=== PATIENT | female | born 1940 | race African-American/Black ===

== ENCOUNTER 2020-06-16 16:56 | Observation (INO) ==
[2020-06-16 17:43] LABS: VBG HCO3 23 mEq/L (21-27); VBG PCO2 42 mmHg (41-51); VBG PH 7.36 pH Units (7.32-7.42); VBG PO2 92 mmHg (25-50)
[2020-06-16 18:34] LABS: Calcium 10.1 mg/dL (8.6-10.3); Potassium 4.7 mEq/L (3.5-5.1); Troponin I 0.03 ng/mL (< 0.04)
[2020-06-16] MEDS ORDERED: 0.9 % Sodium Chloride 1,000 ML IVC ONE (18:34)
[2020-06-16] MEDS ORDERED: *HR* Dextrose 50 % in Water (Vial) 50 ML VIAL IVP PRN ×3 (18:37→23:41)
[2020-06-16] MEDS ORDERED: Insulin Human Regular 100 UNIT in 0.9 % Sodium Chloride 100 ML IVC SCH ×2 (18:45→22:30)
[2020-06-16] MEDS ORDERED: 0.9 % Sodium Chloride 1,000 ML IVC STA (18:46)
[2020-06-16 19:22] LABS: Bilirubin,Urine Negative (Negative); Blood,Urine Negative (Negative); Clarity,Urine Clear (Clear); Color,Urine Colorless (Yellow); Glucose,Urine (UA) >=1000 mg/dL (Normal); Ketones,Urine 40 mg/dL (Negative); Leukocyte Esterase,Urine Small (Negative); Nitrite,Urine Negative (Negative); Protein,Urine Negative (Neg-Trace); Specific Gravity,Urine > 1.030 (1.010-1.025); Squamous Epithelial Cell,Urine Few per hpf (None-Few); Urobilinogen,Urine Normal (Normal)
[2020-06-16] MEDS ORDERED: Naloxone 0.4 MG/ML INJ IVP PRN (20:32)
[2020-06-16] MEDS ORDERED: 0.45 % Sodium Chloride w/KCl 20 MEQ/1,000 ML MLS IVC SCH ×2 (20:45→22:37)
[2020-06-16 21:48] LABS: Basophils % 0.3 %; Eosinophils % 0.5 %; Hematocrit 39.4 % (35.3-44.9); Immature Granulocytes % 0.2 % (0-4); Lymphocytes # 1.5 K/mcL (0.6-4.6); Lymphocytes % 22.2 %; Mean Platelet Volume 11.2 fL (9.4-12.4); Monocytes # 0.4 K/mcL (0.0-1.3); Monocytes % 5.9 %; Neutrophils # 4.7 K/mcL (1.6-8.9); Platelet Count 185 K/mcL (140-400); Red Blood Count 4.19 M/mcL (3.82-4.97); Red Cell Distribution Width 13.2 % (11.5-14.5); Segmented Neutrophils % 70.9 %; White Blood Count 6.6 K/mcL (4.3-11.1)
[2020-06-16 21:51] LABS: VBG HCO3 25 mEq/L (21-27); VBG PCO2 43 mmHg (41-51); VBG PH 7.37 pH Units (7.32-7.42); VBG PO2 46 mmHg (25-50)
[2020-06-16 21:52] LABS: Prothrombin Time 11.3 Seconds (9.4-12.1)
[2020-06-16 22:04] LABS: Creatinine,Urine 25 mg/dL; Microalbumin,Urine < 7 mg/L; Potassium,Urine 17.7 mEq/L; Protein/Creatinine Ratio,Urine 0.36 mg/mg (0.00-0.20); Sodium, Urine 28.6 mEq/L
[2020-06-16 22:08] LABS: Alanine Aminotransferase 23 Units/L (7-52); Albumin 3.7 g/dL (3.5-5.7); Albumin/Globulin Ratio 1.5 (1.1-2.2); Alkaline Phosphatase 56 Units/L (34-104); Aspartate Amino Transferase 23 Units/L (13-39); BUN/Creatinine Ratio 20 (6-26); Bilirubin,Direct 0.1 mg/dL (0.0-0.2); Bilirubin,Indirect 0.4 mg/dL (0.0-1.0); Bilirubin,Total 0.5 mg/dL (0.3-1.0); Blood Urea Nitrogen 21 mg/dL (8-23); Calcium 9.1 mg/dL (8.6-10.3); Carbon Dioxide 20 mEq/L (23-29); Chloride 109 mEq/L (98-107); Globulin 2.5 g/dL (2.4-3.5); Glucose 383 mg/dL (70-105); Magnesium 2.1 mg/dL (1.6-2.6); Osmolality,Calculated 311 (280-300); Phosphorous 1.5 mg/dL (2.7-4.5); Potassium 3.6 mEq/L (3.5-5.1); Sodium 141 mEq/L (136-145); Total Protein 6.2 g/dL (6.4-8.9); eGFR For African Americans > 60 (> 60); eGFR For Non-African Americans 52 (> 60)
[2020-06-16] MEDS: *HR* Heparin 5,000 UNIT/ML VIAL SQ SCH (23:22)
[2020-06-16] MEDS ORDERED: Dextrose Gel 15 GM/37.5 ML TUBE PO PRN ×2 (23:41)
[2020-06-16] MEDS ORDERED: D5% in Water 1,000 ML IVC PRN (23:41)
[2020-06-16] MEDS ORDERED: Insulin DETEMIR 100 UNIT/ML X5UNITS SQ ONE (23:50)
[2020-06-17 00:36] LABS: VBG HCO3 22 mEq/L (21-27); VBG PCO2 39 mmHg (41-51); VBG PH 7.36 pH Units (7.32-7.42); VBG PO2 44 mmHg (25-50)
[2020-06-17 00:52] LABS: BUN/Creatinine Ratio 23 (6-26); Blood Urea Nitrogen 21 mg/dL (8-23); Calcium 9.5 mg/dL (8.6-10.3); Carbon Dioxide 22 mEq/L (23-29); Chloride 110 mEq/L (98-107); Glucose 189 mg/dL (70-105); Magnesium 2.1 mg/dL (1.6-2.6); Osmolality,Calculated 304 (280-300); Phosphorous 1.8 mg/dL (2.7-4.5); Potassium 3.2 mEq/L (3.5-5.1); Sodium 143 mEq/L (136-145); eGFR For African Americans > 60 (> 60); eGFR For Non-African Americans 58 (> 60)
[2020-06-17] MEDS: *HR* Heparin 5,000 UNIT/ML VIAL SQ SCH ×3 (05:07→20:00)
[2020-06-17 06:11] LABS: Calcium 8.6 mg/dL (8.6-10.3); Magnesium 2.1 mg/dL (1.6-2.6); Phosphorous 2.8 mg/dL (2.7-4.5); Potassium 3.4 mEq/L (3.5-5.1)
[2020-06-17] MEDS ORDERED: Potassium Chloride Elixir 20 MEQ/15 ML UDC PO ONE (07:32)
[2020-06-17] MEDS: Insulin LISPRO 300 UNITS/3 ML VIAL SQ SCH ×3 (07:39→17:21)
[2020-06-17 08:43] LABS: VBG HCO3 26 mEq/L (21-27); VBG PCO2 49 mmHg (41-51); VBG PH 7.33 pH Units (7.32-7.42); VBG PO2 37 mmHg (25-50)
[2020-06-17 08:43] LABS: Estimated Average Glucose 355 mg/dl
[2020-06-17] MEDS: *HR* Metformin 500 MG TABLET PO SCH (12:13)
[2020-06-17] MEDS ORDERED: Furosemide 40 MG TABLET PO PRN (13:28)
[2020-06-17] MEDS: Sulfamethoxazole/Trimeth DS 1 EACH TABLET PO SCH (19:56)
[2020-06-17] MEDS ORDERED: Insulin LISPRO 300 UNITS/3 ML VIAL SQ SCH (21:00)
[2020-06-17] MEDS ORDERED: Insulin DETEMIR 100 UNIT/ML X5UNITS SQ SCH (21:00)
[2020-06-17] MEDS ORDERED: Insulin DETEMIR 100 UNIT/ML X5UNITS SQ ONE (23:42)
[2020-06-18] MEDS: *HR* Heparin 5,000 UNIT/ML VIAL SQ SCH (05:38)
[2020-06-18 06:48] LABS: BUN/Creatinine Ratio 16 (6-26); Blood Urea Nitrogen 14 mg/dL (8-23); Calcium 8.4 mg/dL (8.6-10.3); Carbon Dioxide 25 mEq/L (23-29); Chloride 107 mEq/L (98-107); Glucose 209 mg/dL (70-105); Osmolality,Calculated 293 (280-300); Potassium 3.6 mEq/L (3.5-5.1); Sodium 138 mEq/L (136-145); eGFR For African Americans > 60 (> 60); eGFR For Non-African Americans > 60 (> 60)
[2020-06-18] MEDS: Sulfamethoxazole/Trimeth DS 1 EACH TABLET PO SCH (08:16)
[2020-06-18] MEDS: *HR* Metformin 500 MG TABLET PO SCH (08:16)
[2020-06-18] MEDS: Insulin LISPRO 300 UNITS/3 ML VIAL SQ SCH (08:17)
[2020-06-18] MEDS ORDERED: Cholecalciferol (D-3) 1,000 UNIT (25MCG) TABLET PO SCH (09:00)
[2020-06-18 10:56] VITALS: BP 132/72
== END 2020-06-18 14:05 | disposition home or self-care (01) ==
LOC: 2NNU 16:56 → EMEROOARM 16:56 → 2NNU 20:40 → 3BNU 06-17 13:51
PROVIDERS: ADMIT Internal Medicine; ATTEND Internal Medicine

== ENCOUNTER 2020-07-03 10:32 | Observation (INO) ==
[2020-07-03 11:19] LABS: Basophils % 0.5 %; Eosinophils % 0.3 %; Hematocrit 39.7 % (35.3-44.9); Hemoglobin 12.5 g/dL (11.5-15.4); Immature Granulocytes % 0.2 % (0-4); Lymphocytes # 1.2 K/mcL (0.6-4.6); Mean Corpuscular HGB Conc 31.5 g/dL (31.6-35.5); Mean Corpuscular Hemoglobin 30.2 pg (28.0-33.3); Mean Corpuscular Volume 95.9 fL (83.0-100.0); Mean Platelet Volume 9.9 fL (9.4-12.4); Monocytes # 0.5 K/mcL (0.0-1.3); Monocytes % 8.6 %; Neutrophils # 4.3 K/mcL (1.6-8.9); Platelet Count 206 K/mcL (140-400); Red Blood Count 4.14 M/mcL (3.82-4.97); Red Cell Distribution Width 14.5 % (11.5-14.5); Segmented Neutrophils % 71.4 %; White Blood Count 6.1 K/mcL (4.3-11.1)
[2020-07-03 11:27] LABS: Prothrombin Time 11.2 Seconds (9.4-12.1)
[2020-07-03 11:44] LABS: BUN/Creatinine Ratio 13 (6-26); Blood Urea Nitrogen 12 mg/dL (8-23); Calcium 9.5 mg/dL (8.6-10.3); Carbon Dioxide 27 mEq/L (23-29); Chloride 102 mEq/L (98-107); Glucose 191 mg/dL (70-105); Osmolality,Calculated 293 (280-300); Potassium 3.9 mEq/L (3.5-5.1); Sodium 139 mEq/L (136-145); Troponin I < 0.03 ng/mL (< 0.04); eGFR For African Americans > 60 (> 60); eGFR For Non-African Americans 59 (> 60)
[2020-07-03] MEDS ORDERED: Naloxone 0.4 MG/ML INJ IVP PRN (12:44)
[2020-07-03] MEDS ORDERED: D5% in Water 1,000 ML IVC PRN (12:46)
[2020-07-03] MEDS ORDERED: Dextrose Gel 15 GM/37.5 ML TUBE PO PRN ×2 (12:46)
[2020-07-03] MEDS ORDERED: Perflutren Lipid Microsphere 1.3 ML in 0.9 % Sodium Chloride 8.7 ML IVP PRN (12:46)
[2020-07-03] MEDS ORDERED: Furosemide 40 MG TABLET PO PRN (12:47)
[2020-07-03 13:39] LABS: Bilirubin,Urine Negative (Negative); Blood,Urine Negative (Negative); Clarity,Urine Clear (Clear); Color,Urine Light-Yellow (Yellow); Glucose,Urine (UA) Normal (Normal); Ketones,Urine Negative (Negative); Leukocyte Esterase,Urine Negative (Negative); Nitrite,Urine Negative (Negative); PH,Urine 6.5 pH Units (5.0-8.0); Protein,Urine Negative (Neg-Trace); Urobilinogen,Urine Normal (Normal)
[2020-07-03] MEDS ORDERED: Aspirin 325 MG TABLET PO ONE (14:09)
[2020-07-03] MEDS ORDERED: Ketorolac 15 MG/ML VIAL IVP PRN (14:11)
[2020-07-03] MEDS: Insulin LISPRO 300 UNITS/3 ML VIAL SQ SCH ×2 (15:21→16:39)
[2020-07-03] MEDS: lisinopriL 5 MG TABLET PO SCH (15:43)
[2020-07-03] MEDS: Furosemide 40 MG TABLET PO SCH ×2 (15:43→20:48)
[2020-07-03] MEDS ORDERED: Insulin NPH/REG 70/30 100 UNIT/ML (x5UNIT) SQ SCH ×2 (16:30→17:00)
[2020-07-03 17:49] LABS: Albumin 4.2 g/dL (3.5-5.7); Albumin/Globulin Ratio 1.8 (1.1-2.2); Bilirubin,Direct 0.1 mg/dL (0.0-0.2); Bilirubin,Indirect 0.4 mg/dL (0.0-1.0); Bilirubin,Total 0.5 mg/dL (0.3-1.0); Globulin 2.4 g/dL (2.4-3.5); Total Protein 6.6 g/dL (6.4-8.9)
[2020-07-03] MEDS: *HR* Heparin 5,000 UNIT/ML VIAL SQ SCH (17:49)
[2020-07-03 18:36] LABS: Hepatitis B Surface Antigen Nonreactive (Nonreactive)
[2020-07-03 19:05] LABS: Hepatitis C Virus Antibody Nonreactive (Nonreactive)
[2020-07-03 19:07] LABS: Hepatitis A Antibody IgM Nonreactive (Nonreactive); Hepatitis B Core IgM Nonreactive (Nonreactive)
[2020-07-03] MEDS ORDERED: Insulin LISPRO 300 UNITS/3 ML VIAL SQ SCH (21:00)
[2020-07-04] MEDS: *HR* Dextrose 50 % in Water (Vial) 50 ML VIAL IVP PRN ×2 (00:37→04:40)
[2020-07-04 02:01] LABS: Troponin I < 0.03 ng/mL (< 0.04)
[2020-07-04] MEDS: *HR* Heparin 5,000 UNIT/ML VIAL SQ SCH (04:40)
[2020-07-04] MEDS ORDERED: polyethylene glycoL 3350 17 GM POWD.PACK PO PRN (06:04)
[2020-07-04] MEDS ORDERED: Regadenoson 0.4 MG/5 ML SYRINGE IVP ONE (06:25)
[2020-07-04] MEDS: Insulin LISPRO 300 UNITS/3 ML VIAL SQ SCH ×2 (08:34→12:38)
[2020-07-04] MEDS ORDERED: Aspirin 81 MG TAB.CHEW PO SCH (09:00)
[2020-07-04] MEDS ORDERED: Cyanocobalamin (B-12) 1,000 MCG TABLET PO SCH (09:00)
[2020-07-04] MEDS: Furosemide 40 MG TABLET PO SCH (10:21)
[2020-07-04] MEDS: lisinopriL 5 MG TABLET PO SCH (10:21)
[2020-07-04 11:02] VITALS: BP 119/65
[2020-07-05 15:40] LABS: Chol/HDL Ratio 3.2 (0-4.9); Cholesterol 238 mg/dL (< 200); HDL Cholesterol 74 mg/dL (40-59); LDL Cholesterol,Calculated 141 mg/dL (< 100); Triglycerides 115 mg/dL (< 150)
== END 2020-07-04 14:29 | disposition home health service (06) ==
LOC: EMEROOARM 10:32 → 3BNU 10:32 → SUATTDRO 12:47 → 3BNU 14:10
PROVIDERS: ADMIT Student in an Organized Health Care Education/Training Program; ATTEND Internal Medicine